=== PATIENT | male | born 1985 | race Hispanic/Latino ===

== ENCOUNTER 2021-05-01 21:16 | Emergency (ER) | payer SELFPAY ==
--- NOTE | ~2021-05-01 | CT_ITS ---
CT soft tissue neck w con DATE: 05/02/2021 05:35 INDICATION: Right supraclavicular swelling TECHNIQUE: Examination was performed with 75 cc Omnipaque 350 intravenous contrast material. Axial im ages are obtained, with sagittal and coronal reconstructions performed. Exam dose: 468.78 mGy-cm total exam DLP. COMPARISON: None FINDINGS: There is mildly comparison thickening and fluid in the left maxillary sinus and minimal new comparison thickening and small polyp or mucous retention cysts of the right maxillary sinus. The pa ranasal sinuses and mastoid air cells are otherwise unremarkable. No cervical mass lesion or adenopathy. Normal parotid and submandibular glands and thyroid gland. No supraclavicular soft tissue mass is evident on the right at the area of indicated lump. A BB marker w as placed in the area of clinical complaint. There is underlying normal subcutaneous adipose tissue. Normal superior mediastinum including normal aortic arch. No aortopulmonary window or superior medias tinal or right paratracheal lymphadenopathy. No thoracic aortic arch aneurysm is evident. The upper l guera zones are clear. IMPRESSION: No mass lesion or other significant abnormality of the soft tissues of the neck or right supraclavicular soft tissues Reviewed, dictated and finalized at [facility]. Reviewed, dictated and finalized at [facility].
--- NOTE | ~2021-05-01 | XR_ITS ---
EXAMINATION: XR chest 2V DATE: 05/01/2021 21:33 INDICATION: Shortness of breath, chest pain and chest tightness. TECHNIQUE: PA and lateral views of the chest were obtained. COMPARISON: None FINDINGS: The lungs are clear with no focal airspace opacities, pulmonary edema, pleural effusion or pneumothor ax. The cardiomediastinal silhouette is normal. Visualized bones and soft tissues are unremarkable. IMPRESSION: 1. No acute cardiopulmonary disease. Reviewed, dictated and finalized at [facility].
[2021-05-01 21:19] VITALS: BP 156/109; PULSE 87; RESP 18; TEMP 36.4; O2SAT 96
--- NOTE | 2021-05-01 21:24 | ECG_ITS ---
Measurements Intervals [place] Rate: 78 P: 36 RI: 163 QRS: 31 QRSD: 83 T: 24 QT: 353 QTc: 404 Interpretive Statements SINUS RHYTHM DELAYED PRECORDIAL R/S TRANSITION ST ELEVATION IN DIFFUSE LEADS- PROBABLY EARLY REPOLARIZATION ABNORMALITY BORDERLINE ECG Electronically Signed On 05-02-2021 11:41:17 CDT by Petar Pompa D.O.
[2021-05-01 21:37] LABS: Basophils Absolute Auto 0.1 K/mm3 (0.0-0.1); Basophils Percent Auto 0.8 % (0.2-1.2); Eosinophils Absolute Auto 0.3 K/mm3 (0-0.3); Eosinophils Percent Auto 3.5 % (0-4.4); Hematocrit 48.5 % (42.0-52.0); Hemoglobin 16.3 g/dL (14.0-18.0); Immature Granulocyte Absolute 0.03 K/mm3 (0.00-0.031); Immature Granulocyte Percent A 0.4 % (0-0.5); Lymphocytes Absolute Auto 2.21 K/mm3 (0.9-3.2); Lymphocytes Percent Auto 29.9 % (18.3-44.2); Mean Corpuscular HGB Conc 33.6 g/dl (32-36); Mean Corpuscular Hemoglobin 31.1 pg (26-34); Mean Corpuscular Volume 92.6 fl (80-100); Mean Platelet Volume 9.7 fl (7.4-10.4); Monocytes Absolute Auto 0.7 K/mm3 (0.1-0.6); Monocytes Percent Auto 9.3 % (2.6-8.5); Neutrophils Absolute Auto 4.2 K/mm3 (1.3-6.7); Neutrophils Percent Auto 56.1 % (45.5-73.1); Platelet Count Result 241 k/mm3 (150-375); Red Blood Count 5.24 M/mm3 (4.6-6.20); Red Cell Distribution Width 12.7 % (11.5-14.5); White Blood Count 7.4 K/mm3 (4.5-10.0)
[2021-05-01 21:49] LABS: Anion Gap 14 mmol/L (8-16); Blood Urea Nitrogen 12 mg/dL (9-20); Calcium 9.4 mg/dL (8.4-10.2); Carbon Dioxide 24 mmol/L (22-30); Chloride 98 mmol/L (98-107); Estimated Glomerular Filt Rate > 60; Glucose 104 mg/dL (65-110); INR 0.9; Potassium 3.4 mmol/L (3.4-5.0); Prothrombin Time 11.9 Seconds (11.1-14.7); Sodium 136 mmol/L (137-145)
[2021-05-01 21:50] LABS: Partial Thromboplastin Time 28.1 SECONDS (22.3-36.8)
[2021-05-01 22:01] LABS: Troponin I < 0.012 ng/mL (0.000-0.034)
[2021-05-02] VITALS (15 sets, daily range): BP systolic 119–162; BP diastolic 75–107; PULSE 58–80; RESP 12–22; O2SAT 94–99
[2021-05-02 02:35] LABS: Troponin I < 0.012 ng/mL (0.000-0.034)
[2021-05-02] MEDS: ASPIRIN 81 MG CHEWABLE TABLET 324 MG PO (02:50)
--- NOTE | 2021-05-02 03:14 | PC.NURSE ---
called lab to add on d dimer at 0312 spoke with bud
--- NOTE | 2021-05-02 03:16 | ED.CHESTPAIN ---
HPI - Chest Pain General Chief Complaint: Chest Pain Stated Complaint: chest pain Time Seen by Provider: 05/02/21 02:10 Source: patient Mode of arrival: ambulatory Limitations: language barrier (serbian speaking) History of Present Illness HPI narrative: This is a 36 year old male who presents for evaluation of right chest tightness that has been present for 2 months. He reports pain is intermittent and it is gradually getting worse. He also reports intermittent shortness of breath. He denies cough, fever, night sweats, weightloss, nausea, vomiting or dizziness. He has also noticed a lump to his right upper chest. He states he feels like something is stuck. He has not sought medical treatment for this, and he has not taken any thing for pain. Rates pain 5/10. PAtient reports swelling to right base of neck , supraclavicular. Related Data Allergies Allergy/AdvReac Type Severity Reaction Status Date / Time No Known Allergies Allergy Verified 05/02/21 02:48 Review of Systems Review of Systems: All systems reviewed & are unremarkable except as noted in HPI and below PMFSH Past Medical History Medical History (Updated 05/02/21 @ 07:37 by Autumn Lilly MD) Patient denies medical problems Surgical History Surgical History (Updated 05/02/21 @ 03:24 by Autumn Lilly MD) No pertinent past surgical history Social History Social History (Updated 05/02/21 @ 03:24 by Autumn Llily MD) Smoking status: Never smoker Exam Const: General: no acute distress and alert Orientation/consciousness: patient oriented x3 Eyes: EOM: EOMs intact bilaterally Neck: Neck: normal visual inspection and no lymphadenopathy Chest: Other: right anterior upper chest - nodular lesion felt, no erythema, no rash, no fluctuance. Resp: Effort & Inspection: normal respiratory effort and no retractions Auscultation: clear to auscultation bilaterally Cardio: Rate: regular rate Rhythm: regular rhythm Heart sounds: no murmurs GI: GI Palp: Yes Soft to palpation, No Tenderness to palpation present (GI) and No Guarding due to palpation present (GI) Auscultation: normal bowel sounds Skin: General skin exam: normal color Rashes: no rashes Neuro: General: patient oriented x3, moves all extremities and CN's II-XI intact bilaterally Psych: Mental Status: mental status grossly normal Affect: normal affect Course Reevaluation(s) Reevaluation #1: I spoke to Dr. cash , radiologist over the phone as he read CT neck. His preliminary reading is no acute finding. No mass at sight of patient right supraclavicular swelling. no lymphadenopathy seen either. PAtient labs unremarkable so he will be discharged to follow up with PCP Date: 05/02/21 Time: 07:33 Vital Signs Vital signs: Vital Signs Temperature 97.5 F L 05/01/21 21:19 Pulse Rate 87 05/01/21 21:19 Respiratory Rate 18 05/01/21 21:19 Blood Pressure 156/109 H 05/01/21 21:19 Pulse Oximetry 96 05/01/21 21:19 Temperature 97.5 F L 05/01/21 21:19 Pulse Rate 63 05/02/21 07:27 Respiratory Rate 16 05/02/21 07:27 Blood Pressure 123/85 05/02/21 07:27 Pulse Oximetry 99 05/02/21 07:27 MDM - Chest Pain Lab Data Attestation: I reviewed the patient's lab results. Result diagrams: 05/01/21 21:29 05/01/21 21:29 Labs: Lab Results 05/01/21 05/01/21 05/01/21 Range/Units 21:29 21:29 21:29 WBC 7.4 (4.5-10.0) K/mm3 RBC 5.24 (4.6-6.20) M/mm3 Hgb 16.3 (14.0-18.0) g/dL Hct 48.5 (42.0-52.0) % MCV 92.6 (80-100) fl MCH 31.1 (26-34) pg MCHC 33.6 (32-36) g/dl RDW 12.7 (11.5-14.5) % Plt Count 241 (150-375) k/mm3 MPV 9.7 (7.4-10.4) fl Immature Gran % (Auto) 0.4 (0-0.5) % Neut % (Auto) 56.1 (45.5-73.1) % Lymph % (Auto) 29.9 (18.3-44.2) % Gage % (Auto) 9.3 H (2.6-8.5) % Eos % (Auto) 3.5 (0-4.4) % Baso % (Auto) 0.8 (0.2-1.2) % Lymph # (Auto) 2.2
[2021-05-02] MEDS: IBUPROFEN 600 MG TABLET PO (03:33)
[2021-05-02 04:27] LABS: D Dimer 0.23 ug/mL (<0.48)
--- NOTE | 2021-05-02 04:31 | PC.NURSE ---
talked to dr roca before 6 hr trop was due to confirm if she wanted it or not - she stated no it was not needed at 0320
--- NOTE | 2021-05-02 05:14 | PC.NURSE ---
CT scan notified of IV at this time.
--- NOTE | 2021-05-02 07:26 | PC.NURSE ---
bedside report from linsey gil. care assumed at this time.
== END 2021-05-02 07:59 | disposition home or self-care (01) ==
PROVIDERS: Emergency Medicine; Emergency Provider General Practice
DX: R07.9 Chest pain, unspecified (principal)
CPT/HCPCS: 36415; 70491; 71046; 80048; 84484; 85025; 85380; 85610; 85730; 93005; 99284; A9270; Q9967